=== PATIENT | female | born 1990 | race Caucasian/White ===

== ENCOUNTER 2021-01-25 10:09 | Emergency (ER) | payer OTHER ==
[2021-01-25 12:09] LABS: BILIRUBIN 1+ mg/dL (NEGATIVE); BLOOD 3+ Ery/uL (NEGATIVE); CLARITY HAZY (CLEAR); COLOR RED (YELLOW); GLUCOSE (U) NORMAL (NORMAL); LEUKOCYTES NEGATIVE Leu/uL (NEGATIVE); NITRITE NEGATIVE (NEGATIVE); PROTEIN 2+ mg/dL (NEGATIVE); SPECIFIC GRAVITY >=1.030 (1.001-1.030); pH 6.5 (5.0-9.0)
[2021-01-25 12:11] LABS: URINARY RBC TNTC
[2021-01-25 12:12] LABS: BACTERIA TRACE
[2021-01-25 12:29] LABS: BASOPHIL 0.4 % (0-2); EOSINOPHIL 0.3 % (0-5); HCT 38.9 % (37.0-47.0); HGB 13.6 g/dl (12.5-16.0); LYMPHOCYTE 30.1 % (15-48); MCH 31.6 pg (25.0-31.0); MCV 90.3 fL (78.0-100.0); MONOCYTE 7.3 % (0-12); MPV 9.2 fL (6.0-9.5); NEUTROPHIL 61.6 % (41-80); NRBC 0; PLT 325 K/uL (150-400); RBC 4.31 M/uL (4.20-5.40); RDW 12.3 % (11.5-14.0); WBC 7.8 K/uL (4.0-10.5)
[2021-01-25 12:52] LABS: BILIRUBIN - TOTAL 0.5 mg/dL (0.2-1.0); CREATININE 0.8 mg/dL (0.51-0.95); GLOBULIN (CALCULATION) 4.2 g/dL; POTASSIUM 3.9 mmol/L (3.5-5.1); TOTAL PROTEIN 8.2 g/dL (6.4-8.2)
[2021-01-25] MEDS ORDERED: OMEPRAZOLE40 MG PO (13:06)
== END 2021-01-25 13:49 | disposition home or self-care (01) ==
LOC: FER 10:09
PROVIDERS: Emergency Medicine
DX: K29.00 Acute gastritis without bleeding (principal); R19.7 Diarrhea, unspecified
CPT/HCPCS: 36415; 80053; 81001; 83690; 85025; J2405